=== PATIENT | male | born 1945 | race Caucasian/White ===

== ENCOUNTER → 2023-09-29 13:08 | Outpatient (CLI) | payer MEDICARE, SELFPAY ==
[2023-09-29 14:26] LABS: T4 (Thyroxine) 12.1 ug/dl (5.53-11.0)
[2023-09-29 14:40] LABS: Thyroid Stimulating Hormone 0.59 uIU/mL (0.465-4.68)
[2023-09-30 11:15] LABS: Triiodothyronine (T3) Free 2.7 pg/mL (2.0-4.4)
[2023-09-30 12:07] LABS: Chloride 104 mmol/L (98-107)
[2023-09-30 12:08] LABS: Potassium 4.5 mmoL/L (3.5-5.1); Sodium 139 mmol/L (136-145)
[2023-09-30 12:10] LABS: Blood Urea Nitrogen 19 mg/dl (9-20); Estimated Glomerular Filt Rate 59 ml/min (>60); GFR (African American) 71 ML/MIN (>60)
[2023-09-30 12:11] LABS: Alanine Aminotransferase 26 U/L (12-78); Albumin Level 3.9 g/dl (3.5-5.0); Albumin/Globulin Ratio 1.6 (1.1-1.8); Alkaline Phosphatase 99 U/L (38-126); Anion Gap 8.5 mEq/L (5-15); Aspartate Amino Transferase 31 U/L (17-59); Bilirubin,Total 0.3 mg/dl (0.2-1.3); Calcium 8.7 mg/dl (8.4-10.2); Carbon Dioxide 31 mmol/L (22.0-30.0); Chol/HDL Ratio 3.9 (1-3.5); Cholesterol 146 mg/dl (140-200); Globulin 2.5 g/dL (1.3-3.2); Glucose 96 mg/dl (74-100); HDL Cholesterol 37 mg/dl (40-60); Total Protein,Serum 6.4 g/dl (6.3-8.2); Triglycerides 100 mg/dl (30-150); VLDL Cholesterol 20 mg/dL (0-40)
[2023-09-30 12:22] LABS: Direct LDL Cholesterol 87.09 mg/dL (100-129)
[2023-09-30 14:04] LABS: Prostate Specific Ag Screen 1.2 ng/ml (0.0-4.0)
== END ==
PROVIDERS: PCP Internal Medicine; Visit Provider Chiropractor
DX: E04.9 Nontoxic goiter, unspecified; I10 Essential (primary) hypertension; Z12.5 Encounter for screening for malignant neoplasm of prostate
CPT/HCPCS: 36415; 80053; 80061; 84436; 84443; 84481; G0103

== ENCOUNTER → 2023-11-05 15:19 | Outpatient (CLI) | payer MEDICARE, SELFPAY ==
--- NOTE | 2023-11-05 | CA_ITS ---
FINAL REPORT TECHNIQUE: Multiple transverse and longitudinal images were performed of the right femoral-popliteal deep venous system with augmentation and compression maneuvers. CLINICAL HISTORY: Right leg pain x 1 week that has progressively gotten worse in the last 3-4 days. Patient denies trauma. 81 mg ASA daily, HTN, HLD, smokeless tobacco FINDINGS: Right lower extremity duplex ultrasound demonstrates normal flow in the deep venous system. There is no abnormal echogenicity to suggest thrombus. There is normal compression and augmentation. IMPRESSION: No evidence of right DVT. Reviewed, Interpreted and Dictated by Ethan Montes MD Transcribed by Maria Isabel Wells Authenticated and [facility]
== END ==
PROVIDERS: PCP Internal Medicine; Visit Provider Internal Medicine
DX: M79.661 Pain in right lower leg (principal); Z86.718 Personal history of other venous thrombosis and embolism
CPT/HCPCS: 93971

== ENCOUNTER 2024-08-11 11:54 | Outpatient (CLI) | payer MEDICARE, SELFPAY ==
--- NOTE | 2024-08-11 12:00 | CA_ITS ---
FINAL REPORT TECHNIQUE: Ultrasound images of the deep venous system were obtained from the left groin to the calf veins. CLINICAL HISTORY: Pain In left Calf post long distance travel. Previous DVT of lower extremity-5 years ago FINDINGS: There is isolated calf vein thrombosis of the posterior tibial vein. Recommend follow-up venous duplex exam in 5 to 7 days to assess for potential propagation. IMPRESSION: Posterior tibial vein thrombosis. Recommend follow-up venous duplex in 5-7 days Reviewed, Interpreted and Dictated by Albertina Palafox MD Transcribed by Emily Joe Authenticated and [facility]
== END 2024-08-11 23:59 | disposition home or self-care (01) ==
LOC: RT 11:55
PROVIDERS: PCP Internal Medicine; Visit Provider Internal Medicine
DX: M79.662 Pain in left lower leg (principal)
CPT/HCPCS: 93971

== ENCOUNTER 2024-10-04 16:57 | Outpatient (CLI) | payer MEDICARE, SELFPAY ==
[2024-10-04 18:35] LABS: Prostate Specific Ag Screen 1.4 ng/ml (0.0-4.0); Thyroid Stimulating Hormone 1.24 uIU/mL (0.465-4.68)
== END 2024-10-04 23:59 | disposition home or self-care (01) ==
LOC: LAB.DROPOF 16:58
PROVIDERS: PCP Internal Medicine; Visit Provider Internal Medicine
DX: Z12.5 Encounter for screening for malignant neoplasm of prostate (principal); E03.9 Hypothyroidism, unspecified
CPT/HCPCS: 84443; G0103

== ENCOUNTER 2025-10-05 09:52 | Outpatient (CLI) | payer MEDICARE, SELFPAY ==
[2025-10-05 14:24] LABS: Hematocrit 43.1 % (42.0-52.0); Hemoglobin 14.1 g/dL (14.1-18.0); Immature Granulocytes % 0.3 %; Mean Corpuscular HGB Conc 32.7 g/dL (31.8-35.4); Mean Corpuscular Hemoglobin 30.8 pg (27.0-31.2); Mean Corpuscular Volume 94.1 fl (80-94); Nucleated Red Blood Cells % 0 %; Platelet Count 186 K/mm3 (142-424); Red Blood Count 4.58 M/mm3 (4.60-6.20); Red Cell Distribution Width-SD 44.5 fL; White Blood Count 6.3 K/mm3 (4.8-10.8)
[2025-10-05 15:19] LABS: Alanine Aminotransferase 17 U/L (12-78); Albumin Level 4.1 g/dl (3.5-5.0); Albumin/Globulin Ratio 1.9 (1.1-1.8); Alkaline Phosphatase 104 U/L (38-126); Anion Gap 10.4 mEq/L (5-15); Aspartate Amino Transferase 30 U/L (17-59); Bilirubin,Total 0.7 mg/dl (0.2-1.3); Blood Urea Nitrogen 16 mg/dl (9-20); Calcium 9.0 mg/dl (8.4-10.2); Carbon Dioxide 26 mmol/L (22.0-30.0); Chloride 103 mmol/L (98-107); Cholesterol 144 mg/dl (140-200); Creatinine,Serum 1.10 mg/dl (0.66-1.25); Estimated Glomerular Filt Rate 65 ml/min (>60); GFR (African American) 78 ML/MIN (>60); Globulin 2.2 g/dL (1.3-3.2); Glucose 80 mg/dl (74-100); HDL Cholesterol 46 mg/dl (40-60); Potassium 4.4 mmoL/L (3.5-5.1); Sodium 135 mmol/L (136-145); Total Protein,Serum 6.3 g/dl (6.3-8.2); Triglycerides 82 mg/dl (30-150)
[2025-10-05 15:48] LABS: Thyroid Stimulating Hormone 2.20 uIU/mL (0.465-4.68)
[2025-10-05 16:07] LABS: Vitamin B12 322 pg/mL (239-931)
--- OUTSIDE RECORDS SUMMARY | 2025-10-06 10:42 | XMS_ITS ---
Author Organization Unknown TREATMENT PLAN [facility] Start Date Provider Encounter for Check-up [id number] [facility]
--- OUTSIDE RECORDS SUMMARY | 2025-10-06 10:42 | XMS_ITS | Clinical Summary ---
Author Organization [facility] Address [address] [place] [address] Care Team Providers Care Anode Machine Operator Name Role Phone Janes Aquino MD Primary Care Provider [phone] Allergies Active Allergy Reactions Criticality Noted Date Comments Metronidazole Rash Low 04/04/2022 Medications gabapentin (NEURONTIN) 600 MG tablet Take 1 tablet by mouth 2 (Two) Times a Day. 02/26/2021 Active Synthroid 112 MCG tablet Take by mouth Daily. 02/05/2021 Active traZODone (DESYREL) 100 MG tablet Take 2 tablets by mouth Every Night. 02/05/2021 Active atorvastatin (LIPITOR) 20 MG tablet Take 1 tablet by mouth Daily. Active aspirin 81 MG chewable tablet Chew 1 tablet Daily. Active lisinopril (PRINIVIL,ZESTR IL) 10 MG tablet Take 1 tablet by mouth Daily. Active Cyanocobalamin (VITAMIN B12 PO) Take by mouth. Active Active Problems Problem Noted Date Diagnosed Date HTN (hypertension) 04/04/2022 HLD (hyperlipidemia) 04/04/2022 Hypothyroidism (acquired) 04/04/2022 Ascending aortic aneurysm 04/04/2022 Family History Medical History Relation Name Comments Cirrhosis Father Emphysema Father Pancreatic cancer Mother Relation Name Status Comments Father Mother Social History Tobacco Use Types Packs/Day Years Used Date Smoking Tobacco: Former Cigarettes 20 1983 Smokeless Tobacco: Current Snuff Tobacco Cessation:Ready to Q uit: Not Asked; Counseling Given: Not Answered Alcohol Use Standard Drinks/Week Comments Not Currently 0 (1 standard drink = 0.6 oz pur e alcohol) Abuse Screen Answer Date Recorded Unsafe at Home or Work/School Not on file Feels Threatened by Someone? Not on file Does Anyone Keep You from Co ntacting Others or Doint Things Outside the Home? Not on file 08/29/2023 Physical Sign of Abuse Present Not on file 1 Housing Stability Answer Date Recorded Current Living Arrangements Not on file 08/17 Potentially Unsafe Housing Conditions Not on halle e 08/29/2023 Family and Community Support Answer Sebastian e Recorded Help with Day-to-Day Activities Not on file 08/29/2023 Lonely or Isolated Not on file 08/29/2023 Employment Answer Date Recorded Do you want help finding or keeping work or a santhosh b? Not on file 08/29/2023 Disabilities Answer Date Recorded Concentrating, Remembering, or Making Decisions Difficulty Not on file 08/29/2023 Doing Errands Independently Difficulty Not on fi le 08/29/2023 Education Answer Date Recorded Help with school or training? 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 Not on file Not on file Last Filed Vital Signs Vital Sign Reading Time Taken Comments Blood Pressure 130/80 04/26/2024 1:50 PM EDT Pulse 85 04/26/2024 1:49 PM EDT Temperature 36.9 C (98.4 F) 04/26/2024 1:49 PM EDT Respiratory Rate - - Oxygen Saturation 98% 04/26/2024 1:49 PM EDT Inhaled Oxygen Concentration - - Weight 86.3 kg (190 lb 3.2 oz) 04/26/2024 1:49 P M EDT Height 182.9 cm (6') 04/26/2024 1:49 PM EDT per pt Body Mass Index 25.8 04/26/2024 1:49 PM EDT Plan of Treatment Health Maintenance Due Date Last Done Comments LIPID PANEL 1945 ZOSTER VACCINE (1 of 2) 1996 TDAP/TD VACCINES (2 - Tdap) 04/23/2011 04/23/2001 ANNUAL WELLNESS VISIT 03/29/2021 HEPATITIS C SCREENING 03/29/2021 RSV Vaccine - Adults (1 - 1- dose 75+ series) 2021 INFLUENZA VACCINE 06/17/2025 08/06/2023, , 08/22/2021, Additional history exists COVID-19 Vaccine (5 - 2024-2 6 season) 2025 08/06/2023, 08/22/2021, 01/07/2021, Additional history exists COLONOSCOPY Discontinued 09/13/2019 COLORECTAL CANCER SCREENING Discontinued Pneumococcal Vaccine 50+ Completed 07/02/2022 COLOGUARD Discontinued COLON CANCER SCREENING 5 YEA R SIGMOIDOSCOPY Discontinued CT COLONOGRAPHY Discontinued FECAL OCCULT BLOOD TEST Discontinued FIT Testing (1 year) Discontinued [place] [address] [employer] PPO Care Teams Anode Machine Operator Relationship Specialty Start Date End Date Janes Aquino MD [address] [facility] [address] [place] [address] PCP - General Internal Medicine 03/16/24
== END 2025-10-05 23:59 ==
LOC: LAB.DROPOF 10-06 09:44
PROVIDERS: PCP Internal Medicine; Visit Provider Internal Medicine
DX: E78.5 Hyperlipidemia, unspecified (principal); I10 Essential (primary) hypertension; G60.9 Hereditary and idiopathic neuropathy, unspecified; Z12.5 Encounter for screening for malignant neoplasm of prostate; E03.9 Hypothyroidism, unspecified
CPT/HCPCS: 80053; 80061; 82607; 84443; 85025; G0103